=== PATIENT | female | born 1980 | race Caucasian/White ===

== ENCOUNTER 2024-01-14 06:02 | Day surgery (SDC) | payer OTHER ==
--- NOTE | 2024-01-13 14:27 | EKG ---
Test Date: 2024-01-10 Test Time: 12:39:15 [employer]: ALYSON MEASUREMENT RESULTS: Intervals: Rate: 61 FL: 148 QRSD: 76 QT: 394 QTc: 396 [place]: P: 49 FL: 148 QRS: 40 T: 62 INTERPRETIVE STATEMENTS: Normal sinus rhythm Low voltage QRS Borderline ECG No previous ECG available for comparison Electronically Signed On 01-13-24 14:16:51 CDT by Pedro Luis Madrid
[2024-01-14] MEDS: Ringers Lactate 1,000 ML IV ONE (06:25)
[2024-01-14] MEDS ORDERED: OXYMETAZOLINE HCL 0.05% 15ML NAS ONE (06:31)
[2024-01-14] MEDS ORDERED: OFLOXACIN OPH 0.3%-5 ML BTL ONE (06:31)
[2024-01-14] MEDS ORDERED: LIDOCAINE HCL/EPINEPHRINE 20 ML MDV ONE (06:31)
[2024-01-14] MEDS: OXYMETAZOLINE HCL 0.05% 15ML NAS ONE (06:33)
[2024-01-14] MEDS ORDERED: FENTANYL CITR 100 MCG/2 ML ONE (06:43)
[2024-01-14] MEDS ORDERED: propofoL 200 MG/20 ML VIAL IV ONE (06:43)
[2024-01-14] MEDS ORDERED: LIDOCAINE 2% MPF 5 ML VIAL ONE (06:43)
[2024-01-14] MEDS ORDERED: SUCCINYLCHOLINE 20 MG/ML (10 ML) IV ONE (06:46)
[2024-01-14 06:47] LABS: Urine Specific Gravity/Preg >1.030 (1.005-1.030)
[2024-01-14] MEDS ORDERED: MIDAZOLAM HCL 2 MG/2 ML INJ ONE (06:49)
[2024-01-14] MEDS ORDERED: dexAMETHasone 10 MG/ML VIAL ONE (07:12)
[2024-01-14] MEDS ORDERED: ROCURONIUM 50 MG/5 ML VIAL IV ONE (07:15)
--- NOTE | 2024-01-14 07:33 | P.OP ---
Box Car Checker: NONE,NONE Preoperative diagnosis: Chronic otitis media, serous bilateral. Bilateral conductive hearing loss. Postoperative diagnosis: Same w/Chronic mucoid otitis media, bilateral. Eustachian tube salpingitis Primary procedure: Nasal endoscopy with bilateral eustachian tube balloon dilation Secondary procedure: Bilateral myringotomy with tympanostomy tube placement Anesthesia: General Estimated blood loss: None Specimen: None Findings: Bilateral mucoid middle ear fluid Operative Technique: The patient was placed under general anesthesia via oral endotracheal tube. The left ear was examined using an operating microscope and ear speculum. The ear canal appeared clear. The eardrum appeared intact with mild retraction and appearance of light fanny appearing middle ear fluid. A radial incision was made in the anterior-inferior quadrant of the tympanic membrane and thick clear mucoid fluid was suctioned from the middle ear space. After adequate evacuation, a Paparella type I tube was positioned across the incision using an alligator forcep. Attention was then turned to the right ear. The right ear was examined using an operating microscope and ear speculum. The ear canal appeared clear. The eardrum appeared intact with mild retraction and appearance of partial aeration with partial middle ear fluid in the inferior and anterior aspect of the middle ear space. A radial incision was made in the anterior- inferior quadrant of the tympanic membrane and thick clear mucoid fluid was suctioned from the middle ear space. After adequate evacuation, a Paparella type I tube was positioned across the incision using an alligator forcep. The head of bed was then turned 90 degrees and the patient was prepped for nasal endoscopy. A 0 degree endoscope was used to perform a bilateral nasal endoscopy. The bilateral inferior turbinate, middle turbinate, inferior meatus, middle meatus and superior turbinate and sphenoethmoid recess appeared unremarkable with no significant edema, polyps, pus, or evidence of mucosal inflammation. The scope was advanced into the nasopharynx and there was no evidence of any neoplasm, ulcer or other worrisome pathology. A 30 degree rigid endoscope was then used to perform detailed evaluation of the eustachian tube openings. The left and right eustachian tube openings appeared significantly edematous and obstructed. The [facility] eustachian tube dilation device was prepared for use according to operations examiner instructions. Under 30 degree endoscopic visualization, the device was passed through the right nasal cavity and advanced gently into the eustachian tube opening. The device advanced easily with no significant restriction to its full length where the yellow band was at the meatus of the eustachian tube. The balloon was slowly inflated to a pressure of 2 rosalia with no evidence of any untoward event. The balloon was then increased to a pressure of 8 rosalia and a timer was begun, pressure was increased to a maximum of 10 rosalia. The pressure was held for 90 seconds and then released. After release the balloon device was slowly withdrawn into the catheter and removed. A similar procedure was performed on the left side. Under 30 degree endoscopic visualization, the device was passed through the left nasal cavity and advanced gently into the eustachian tube opening. The device advanced easily with no significant restriction to its full length where the yellow band was at the meatus of the eustachian tube. The balloon was slowly inflated to a pressure of 2 rosalia with no evidence of any untoward event. The balloon was then increased to a pressure of 8 rosalia and a timer was begun, pressure was increased to a maximum of 10 rosalia. The pressure was held for 90 seconds and then released. After release the balloon device was slowly withdrawn into the catheter and removed. Following dilation, photodocumentation was obtained and there was minimal bleeding noted from the eustachian tubes. The procedure was concluded and the patient was returned to care of anesthesia for awakening and extubation and transferred to the recovery room in stable condition. Complications: None Implants: None Fluids & blood products: See anesthesia record Transferred to: Recovery Room Condition: Good
[2024-01-14 08:10] VITALS: O2SAT 100
[2024-01-14 09:42] VITALS: BP 131/59; TEMP 96.9
== END 2024-01-14 08:45 | disposition home or self-care (01) ==
LOC: OR 06:02
PROVIDERS: ATTEND Otolaryngology
PROC: 097G8ZZ Dilation of Left Eustachian Tube, Via Natural or Artificial Opening Endoscopic (ICD-10-PCS; 2024-01-14)
PROC: 097F8ZZ Dilation of Right Eustachian Tube, Via Natural or Artificial Opening Endoscopic (ICD-10-PCS; 2024-01-14)
PROC: 099670Z Drainage of Left Middle Ear with Drainage Device, Via Natural or Artificial Opening (ICD-10-PCS; principal; 2024-01-14 07:00)
PROC: 099570Z Drainage of Right Middle Ear with Drainage Device, Via Natural or Artificial Opening (ICD-10-PCS; 2024-01-14 07:00)
DX: H65.23 Chronic serous otitis media, bilateral (principal); H90.0 Conductive hearing loss, bilateral; H65.33 Chronic mucoid otitis media, bilateral; H68.003 Unspecified Eustachian salpingitis, bilateral
CPT/HCPCS: 93005; 81025; 69436; 69706; J2704; J2001; J2250; J3010; J1100; J7120